=== PATIENT | male | born 1995 | race Caucasian/White ===

== ENCOUNTER 2022-04-11 10:28 | Outpatient (CLI) | payer SELFPAY ==
--- NOTE | 2022-04-11 10:50 | XRR_ITS ---
PROCEDURE INFORMATION: Exam: XR Right Wrist Exam date and time: 04/11/2022 10:57 AM Age: 26 years old Clinical indication: Pain and injury or trauma; Blunt trauma (contusions or hematomas); Wrist; Right; Additional info: Pain in R wrist TECHNIQUE: Imaging protocol: XR Right wrist. Views: 3 or more views. COMPARISON: No relevant prior studies available. FINDINGS: Bones/joints: Negative for acute bony abnormality Soft tissues: Normal. XR/XR wrist RT min 3V* [id number] IMPRESSION: No acute findings.
--- NOTE | 2022-04-11 10:50 | XRR_ITS ---
PROCEDURE INFORMATION: Exam: XR Right Hand Exam date and time: 04/11/2022 10:57 AM Age: 26 years old Clinical indication: Pain and injury or trauma; Blunt trauma (contusions or hematomas); Hand; Right; Additional info: R hand pain TECHNIQUE: Imaging protocol: XR Right hand. Views: 3 or more views. COMPARISON: No relevant prior studies available. FINDINGS: Bones/joints: Negative for acute bony abnormality. Soft tissues: Diffuse soft tissue edema is seen in the dorsal aspect of the hand. XR/XR hand RT min 3V* [id number] IMPRESSION: 1. No acute bone abnormality. 2. Soft tissue edema dorsal hand
== END 2022-04-11 10:29 | disposition home or self-care (01) ==
PROVIDERS: Visit Provider Nurse Practitioner Family
DX: M79.641 Pain in right hand (principal); S69.91XA Unspecified injury of right wrist, hand and finger(s), initial encounter; X58.XXXA Exposure to other specified factors, initial encounter
CPT/HCPCS: 73110; 73130

== ENCOUNTER 2022-04-30 22:32 | Emergency (ER) | payer SELFPAY ==
[2022-04-30 22:43] VITALS: BP 155/92; PULSE 105; RESP 18; TEMP 36.7; O2SAT 98; BMI 29.5
--- NOTE | 2022-04-30 23:55 | ED_ITS ---
HPI - Wound/Laceration General: Chief Complaint: Wound/Laceration Stated Complaint: injury to lip/split open Time Seen by Provider: 04/30/22 22:54 History of Present Illness: Patient is a 26-year-old male comes to the ED with a lip laceration. [place] one of his friends had a paddle that he was carrying. Patient says he turned his head and his lip hit the corner one of the paddles causing a laceration. Denies any loss of consciousness or headache. Patient says he is up-to-date on his tetanus. Associated symptoms: Denies chills, fever(s), nausea or vomiting Review of Systems Const: Denies: fever(s), chills or fatigue Eyes: Denies: change in vision or eye discomfort ENMT: Denies: throat pain, odynophagia, nasal discharge or nasal congestion Card: Denies: chest pain, palpitations, edema, swelling of feet/ankles, dyspnea on exertion or orthopnea Resp: Denies: dyspnea, productive cough or non-productive cough GI: Denies: abdominal pain, nausea, vomiting, diarrhea, constipation or hematochezia : Denies: flank pain, difficulty urinating, dysuria or hematuria Musc: Denies: neck pain, back pain or extremity swelling Skin/Breast: Reports: new lesions (Lip laceration); Denies: rash Neuro: Denies: headache(s), numbness in extremities or weakness in extremities [facility] PFSH: Medical History No pertinent family history No pertinent past medical history Physical Exam Const: COMMON NORMALS: no acute distress, patient oriented x3, healthy appearing and alert GENERAL APPEARANCE: cooperative and comfortable HENMT: COMMON NORMALS: normocephalic HEAD & SCALP: normocephalic FACE & SINUS: laceration left upper lip linear (Involves vermilion border), superficial, with motor nerve function intact and with sensation intact; not actively bleeding, no pulsatile bleeding and with no foreign body present Facial laceration size: 0.75 cm MOUTH: Normal oral and palatal mucosa present THROAT: posterior oropharynx normal and uvula midline Neck/C-Spine: COMMON NORMALS: supple GENERAL: Yes normal visual inspection Resp: COMMON NORMALS: normal respiratory effort, No retractions, No use of accessory muscles and clear to auscultation bilaterally AUSCULTATION: clear to auscultation bilaterally Cardio: COMMON NORMALS: regular rate, regular rhythm, S1 normal heart sound present, S2 normal heart sound present, No gallops present (Cardio), No clicks present (Cardio), No murmurs present (Cardio) and Peripheral pulses 2+ throughout RATE: regular rate RHYTHM: regular rhythm HEART SOUNDS: S1 normal heart sound present and S2 normal heart sound present PERIPHERAL PULSES: Peripheral pulses 2+ throughout GI: COMMON NORMALS: Normal to inspection, nondistended, normoactive bowel sounds present, Soft to palpation, non-tender and no masses PALPATION: Yes Soft to palpation : COMMON NORMALS: Yes no CVA tenderness BLADDER/KIDNEY EXAM: Yes no CVA tenderness Back/Pelvis: COMMON NORMALS: no CVA tenderness Extremity: COMMON NORMALS: normal to inspection Neuro: COMMON NORMALS: patient oriented x3 and moves all extremities SENSORIUM/ORIENTATION: Yes alert Skin: GENERAL SKIN EXAM: dry skin Procedures Laceration Laceration 1: Site: lip (Involves vermilion border) Side (If applicable): left Size (cm): 0.75 Description: linear and clean Depth: simple, single layer Local Anesthetic: lidocaine 2% Amount of anesthesia used (mL): 3 Pre-repair: irrigated extensively (Irrigated extensively with normal saline) Skin layer closed with: nylon Size (cm): 6-0 Number of sutures: 2 Technique: simple, interrupted Course Vital Signs: Vital signs: Vital Signs Temperature 98.0 F 04/30/22 22:43 Pulse Rate 105 H 04/30/22 22:43 Respiratory Rate 18 04/30/22 22:43 Blood Pressure 155/92 04/30/22 22:43 Pulse Oximetry 98 04/30/22 22:43 MDM - Wound/Laceration Medical Decision Making Patient is a 26-year-old male comes to the ED with a lip laceration. Denies any headache or loss of consciousness. He is up-to-date on his tetanus. Vitals are stable patient appears nontoxic and in no acute distress or pain. He has a 0.75 cm linear laceration of left upper lip that involves the vermilion border. Lip laceration was irrigated extensively with normal saline and then lidocaine 2% was used as local. 2 nonabsorbable sutures were then placed to close laceration. Patient was stable for discharge home and told to follow-up with PCP in about 5 days for reevaluation and to have sutures removed. Return ED precautions given. Patient understood and agreed with plan. Discharge Plan Discharge Patient Disposition: Home Clinical Impression: Laceration of lip Qualifiers: Encounter type: initial encounter Qualified Code(s): S01.511A - Laceration without foreign body of lip, initial encounter Condition: Stable Discharge Orders: Discharge ED (Routine); Ordered 04/30/22 Ordered By: Sam Fan Discharge Diet: Regular Discharge Activity: Resume usual activity Patient Instructions: Facial Laceration (ED) Activity Restrictions/Additional Instructions: call your PCP to schedule a follow-up appointment for reevaluation and suture removal in about 5 days. Watch for signs of infection such as redness, warmth, increased tenderness and puslike drainage. If you see the signs of infection return to the ED, urgent care or PCP for reevaluation. Follow discharge plans as discussed. You can return to the ED if symptoms worsen. Coding Level of Care Code ED Allergy Specialist for [facility] Exam Comprehensive
== END 2022-05-01 00:12 | disposition home or self-care (01) ==
PROVIDERS: Emergency Provider Physician Assistant
DX: S01.511A Laceration without foreign body of lip, initial encounter (principal); W22.8XXA Striking against or struck by other objects, initial encounter
CPT/HCPCS: 12011; 99283

== ENCOUNTER 2023-07-05 10:13 | Outpatient (CLI) | payer SELFPAY ==
[2023-07-05 10:26] LABS: Viscosity Semen High Viscosity; Volume Semen 4.5 mL (2-5)
[2023-07-05 10:27] LABS: Pathology Referral Yes; Sperm Immotility 10 % (50-60); Sperm Non-Progressive Motility 10 % (5-10); Sperm Progressive Motility 80 % (31-34)
== END 2023-07-05 10:14 | disposition home or self-care (01) ==
PROVIDERS: Visit Provider Obstetrics & Gynecology
DX: N46.9 Male infertility, unspecified (principal)
CPT/HCPCS: 80503; 89320